=== PATIENT | female | born 1945 | race Caucasian/White ===

== ENCOUNTER 2017-08-25 09:18 | Emergency (ER) | payer MEDICARE, OTHER ==
[~2017-08-25] VITALS: Ht 165.1 cm; Wt 45.0 kg
[~2017-08-25 09:18] MED LIST: ASA LO-DOSE81 MG OR; ESTRACE0.5 MG OR
[2017-08-25 10:03] LABS: HEMATOCRIT 53.9 % (37.0-47.0); HEMOGLOBIN 17.8 g/dl (12.0-16.0); IMMATURE GRANULOCYTES 0.2 % (0.0-1.0); MEAN CELL VOLUME 91.7 fL CALC (80.0-100.0); MEAN CORPUSCULAR HGB 30.3 pG CALC (26.0-32.0); NEUT# 1.57 thou/uL (2.00-7.15); RED BLOOD COUNT 5.88 mill/uL (4.20-5.60); RED CELL DISTRI WIDTH 14.5 % (11.5-15.5)
[2017-08-25 10:19] LABS: PROTHROMBIN TIME 11.4 SECONDS (9.0-12.5)
[2017-08-25 10:20] LABS: ANION GAP 14 (6-22 (CALC)); BUN 15 mg/dL (8-23); BUN/CREATININE RATIO 22 (12-20 (CALC)); CARBON DIOXIDE 33 mmol/l (22-30); CHLORIDE 100 mmol/l (95-108); CREATININE 0.7 mg/dL (0.5-1.0); GFR > 60 ML/MIN (>=60 (CALC)); GFR FOR AFR.AMER. > 60 ML/MIN (>=60 (CALC)); POTASSIUM 4.3 mmol/l (3.5-5.1); SODIUM 142 mmol/l (137-146)
[2017-08-25 10:47] VITALS: BP 196/93
== END 2017-08-25 10:53 | disposition short-term general hospital (02) ==
LOC: ED 09:18
PROVIDERS: Family Medicine
DX: I63.9 Cerebral infarction, unspecified (principal); R29.810 Facial weakness; G81.91 Hemiplegia, unspecified affecting right dominant side; R29.701 NIHSS score 1

== ENCOUNTER 2017-08-31 01:04 | Emergency (ER) | payer MEDICARE, OTHER ==
[~2017-08-31] VITALS: Ht 165.1 cm; Wt 46.2 kg
[2017-08-31] MEDS ORDERED: ASPIRIN81 MG PO (01:22)
[2017-08-31] MEDS ORDERED: ATORVASTATIN CA40 MG PO (01:22)
[2017-08-31] MEDS ORDERED: PLAVIX75 MG PO (01:23)
[2017-08-31] MEDS ORDERED: LISINOPRIL5 MG PO (01:25)
[2017-08-31] MEDS ORDERED: AMOXICILLIN500 MG PO (02:37)
[2017-08-31 02:52] LABS: HEMATOCRIT 47.7 % (37.0-47.0); HEMOGLOBIN 15.9 g/dl (12.0-16.0); IMMATURE GRANULOCYTES 0.2 % (0.0-1.0); MEAN CELL VOLUME 91.4 fL CALC (80.0-100.0); MEAN CORPUSCULAR HGB 30.5 pG CALC (26.0-32.0); MEAN CORPUSCULAR HGB CONC 33.3 g/L CALC (32.0-36.0); NEUT# 2.06 thou/uL (2.00-7.15); RED BLOOD COUNT 5.22 mill/uL (4.20-5.60); RED CELL DISTRI WIDTH 14.2 % (11.5-15.5)
[2017-08-31 03:04] VITALS: BP 153/80
== END 2017-08-31 03:04 | disposition home or self-care (01) ==
LOC: ED 01:04
PROVIDERS: Emergency Medicine
PROC: 0HQGXZZ Repair Left Hand Skin, External Approach (ICD-10-PCS; principal; 2017-08-31)
PROC: 0HQDXZZ Repair Right Lower Arm Skin, External Approach (ICD-10-PCS; 2017-08-31)
DX: S30.0XXA Contusion of lower back and pelvis, initial encounter (principal); S51.811A Laceration without foreign body of right forearm, initial encounter; S61.412A Laceration without foreign body of left hand, initial encounter; W01.190A Fall on same level from slipping, tripping and stumbling with subsequent striking against furniture, initial encounter; Y92.008 Other place in unspecified non-institutional (private) residence as the place of occurrence of the external cause; W19.XXXA Unspecified fall, initial encounter; Z86.73 Personal history of transient ischemic attack (TIA), and cerebral infarction without residual deficits

== ENCOUNTER 2017-11-14 16:36 | Inpatient (IN) | payer MEDICARE, OTHER ==
[2017-11-14] VITALS (9 sets, daily range): BP systolic 131–156; BP diastolic 59–79
[~2017-11-14] VITALS: Ht 165.1 cm; Wt 43.7 kg
[~2017-11-14 16:36] MED LIST changes: +AMOXICILLIN500 MG PO; +ASPIRIN81 MG PO; +ATORVASTATIN CA40 MG PO; +LISINOPRIL5 MG PO; +PLAVIX75 MG PO
[2017-11-14 17:16] LABS: IMMATURE GRANULOCYTES 0.3 % (0.0-5.0); MEAN CELL VOLUME 94.1 fL CALC (80.0-100.0); MEAN CORPUSCULAR HGB 31.1 pG CALC (26.0-32.0); MEAN CORPUSCULAR HGB CONC 33.1 g/L CALC (32.0-36.0); NEUT# 4.45 thou/uL (2.00-7.15); RED BLOOD COUNT 2.54 mill/uL (4.20-5.60); RED CELL DISTRI WIDTH 16.1 % (11.5-15.5); URINE BILIRUBIN - DIPSTICK NEGATIVE (NEGATIVE); URINE BLOOD DIPSTICK TRACE-LYSED (NEGATIVE); URINE COLOR YELLOW; URINE GLUCOSE - DIPSTICK NEGATIVE (NEGATIVE); URINE KETONE NEGATIVE (NEGATIVE); URINE LEUK ESTERASE NEGATIVE (NEGATIVE); URINE NITRITE - DIPSTICK NEGATIVE (Negative); URINE PROTEIN - DIPSTICK 100 mg/dL (NEG-TRACE); URINE SPECIFIC GRAVITY 1.015; URINE UROBILINOGEN - DIPSTICK 0.2 E.U./dL (0.2)
[2017-11-14 17:17] LABS: URINE CLARITY CLEAR
[2017-11-14 17:23] LABS: HEMATOCRIT 23.9 % (37.0-47.0); HEMOGLOBIN 7.9 g/dl (12.0-16.0)
[2017-11-14 17:49] LABS: ALBUMIN 3.2 g/dL (3.2-5.0); ALKALINE PHOSPHATASE 72 u/l (38-126); ANION GAP 11 (6-22 (CALC)); BILIRUBIN, TOTAL 0.3 mg/dL (0.0-1.4); BUN 36 mg/dL (8-23); BUN/CREATININE RATIO 49 (12-20 (CALC)); CARBON DIOXIDE 28 mmol/l (22-30); CHLORIDE 108 mmol/l (95-108); CREATININE 0.7 mg/dL (0.5-1.0); GFR > 60 ML/MIN (>=60 (CALC)); GFR FOR AFR.AMER. > 60 ML/MIN (>=60 (CALC)); POTASSIUM 3.9 mmol/l (3.5-5.1); SGOT/AST 46 u/l (9-36); SGPT/ALT 72 u/l (11-66); SODIUM 143 mmol/l (137-146); TOTAL PROTEIN 5.9 g/dL (6.3-8.2)
[2017-11-14 21:54] LABS: URINE MUCUS FEW hpf (NONE-FEW); URINE SQUAMOUS EPITHELIAL CELL FEW EPI/hpf (0-FEW)
[2017-11-15] VITALS (10 sets, daily range): BP systolic 113–176; BP diastolic 61–75
[2017-11-15 06:21] LABS: MEAN CELL VOLUME 90.9 fL CALC (80.0-100.0); MEAN CORPUSCULAR HGB 30.7 pG CALC (26.0-32.0); MEAN CORPUSCULAR HGB CONC 33.8 g/L CALC (32.0-36.0); RED BLOOD COUNT 3.42 mill/uL (4.20-5.60); RED CELL DISTRI WIDTH 15.2 % (11.5-15.5)
[2017-11-15 06:22] LABS: HEMATOCRIT 31.1 % (37.0-47.0); HEMOGLOBIN 10.5 g/dl (12.0-16.0)
[2017-11-15 06:32] LABS: ANION GAP 9 (6-22 (CALC)); BUN 20 mg/dL (8-23); BUN/CREATININE RATIO 31 (12-20 (CALC)); CARBON DIOXIDE 26 mmol/l (22-30); CHLORIDE 110 mmol/l (95-108); CREATININE 0.6 mg/dL (0.5-1.0); GFR > 60 ML/MIN (>=60 (CALC)); GFR FOR AFR.AMER. > 60 ML/MIN (>=60 (CALC)); POTASSIUM 4.4 mmol/l (3.5-5.1); SODIUM 141 mmol/l (137-146)
== END 2017-11-15 15:02 | DRG 812 ==
LOC: ED 16:36 → ED-I 18:00 → ED 18:19 → ICU 18:20 → MS2 18:20 → ICU 18:21
PROVIDERS: Emergency Medicine; Internal Medicine; ADMIT General Practice; ATTEND General Practice
PROC: 30233N1 Transfusion of Nonautologous Red Blood Cells into Peripheral Vein, Percutaneous Approach (ICD-10-PCS; principal; 2017-11-14)
PROC: 30233N1 Transfusion of Nonautologous Red Blood Cells into Peripheral Vein, Percutaneous Approach (ICD-10-PCS; 2017-11-15)
DX: D62 Acute posthemorrhagic anemia (principal); E46 Unspecified protein-calorie malnutrition; Z68.1 Body mass index [BMI] 19.9 or less, adult; K92.2 Gastrointestinal hemorrhage, unspecified; I10 Essential (primary) hypertension; D45 Polycythemia vera; I69.328 Other speech and language deficits following cerebral infarction; Z85.820 Personal history of malignant melanoma of skin; Z79.02 Long term (current) use of antithrombotics/antiplatelets; Z79.82 Long term (current) use of aspirin
CPT/HCPCS: P9016; S0164

== ENCOUNTER 2018-12-03 17:08 | Emergency (ER) | payer MEDICARE, OTHER ==
[~2018-12-03] VITALS: Ht 165.1 cm; Wt 45.5 kg
[2018-12-03] MEDS ORDERED: PROTONIX40 M2 PO (17:20)
[2018-12-03] MEDS ORDERED: EQL IRON SUPPL325 MG PO (17:20)
[2018-12-03] MEDS ORDERED: HYDROCO/APAP1 TA9 PO (18:41)
[2018-12-03 19:18] VITALS: BP 157/83
== END 2018-12-03 19:18 | disposition home or self-care (01) ==
LOC: ED 17:08
PROC: 2W39X1Z Immobilization of Left Upper Extremity using Splint (ICD-10-PCS; principal; 2018-12-03)
DX: S52.022A Displaced fracture of olecranon process without intraarticular extension of left ulna, initial encounter for closed fracture (principal); S00.83XA Contusion of other part of head, initial encounter; M25.422 Effusion, left elbow; S51.811A Laceration without foreign body of right forearm, initial encounter; S61.412A Laceration without foreign body of left hand, initial encounter; S51.812A Laceration without foreign body of left forearm, initial encounter; S51.012A Laceration without foreign body of left elbow, initial encounter; S80.211A Abrasion, right knee, initial encounter; Y93.01 Activity, walking, marching and hiking; W01.0XXA Fall on same level from slipping, tripping and stumbling without subsequent striking against object, initial encounter; Y92.008 Other place in unspecified non-institutional (private) residence as the place of occurrence of the external cause

== ENCOUNTER 2020-02-11 13:04 | Emergency (ER) | payer MEDICARE, OTHER ==
[~2020-02-11] VITALS: Ht 165.1 cm; Wt 60.0 kg
[~2020-02-11 13:04] MED LIST changes: +EQL IRON SUPPL325 MG PO; +HYDROCO/APAP1 TA9 PO; +PROTONIX40 M2 PO
[2020-02-11 15:35] VITALS: BP 150/65
== END 2020-02-11 15:37 | disposition home or self-care (01) ==
LOC: ED 13:04
DX: S20.211A Contusion of right front wall of thorax, initial encounter (principal); S50.311A Abrasion of right elbow, initial encounter; I10 Essential (primary) hypertension; K21.9 Gastro-esophageal reflux disease without esophagitis; W18.2XXA Fall in (into) shower or empty bathtub, initial encounter; Y92.002 Bathroom of unspecified non-institutional (private) residence as the place of occurrence of the external cause; Z86.73 Personal history of transient ischemic attack (TIA), and cerebral infarction without residual deficits

== ENCOUNTER 2021-01-15 18:45 | Inpatient (IN) | payer MEDICARE, OTHER ==
[~2021-01-15] VITALS: Ht 165.1 cm; Wt 46.0 kg
--- NOTE | 2021-01-15 19:30 | NUR ---
AMB TO RM 15
--- NOTE | 2021-01-15 19:40 | NUR ---
A/O F WITH LOWER ABD TENDERNESS TO PALP & DIARRHEA mm are pink and moist
--- NOTE | 2021-01-15 20:10 | NUR ---
LABS DRAWN,SALINE LOCK LAC PT IS IN NAD.WARM BLANKET PROVIDED
[2021-01-15 20:33] LABS: HEMATOCRIT 39.8 % (37.0-47.0); HEMOGLOBIN 12.8 g/dl (12.0-16.0); MEAN CELL VOLUME 96.1 fL CALC (80.0-100.0); MEAN CORPUSCULAR HGB 30.9 pG CALC (26.0-32.0); MEAN CORPUSCULAR HGB CONC 32.2 g/dL CAL (32.0-36.0); NEUT# 15.65 thou/uL (2.00-7.15); RED BLOOD COUNT 4.14 mill/uL (4.20-5.60); RED CELL DISTRI WIDTH 14.8 % (11.5-15.5); URINE BILIRUBIN - DIPSTICK NEGATIVE (NEGATIVE); URINE BLOOD DIPSTICK NEGATIVE (NEGATIVE); URINE COLOR YELLOW; URINE GLUCOSE - DIPSTICK NEGATIVE (NEGATIVE); URINE KETONE TRACE mg/dL (NEGATIVE); URINE LEUK ESTERASE TRACE (NEGATIVE); URINE PROTEIN - DIPSTICK TRACE mg/dL (NEG-TRACE); URINE SPECIFIC GRAVITY 1.025; URINE UROBILINOGEN - DIPSTICK 0.2 E.U./dL (0.2)
[2021-01-15 20:34] LABS: URINE NITRITE - DIPSTICK NEGATIVE (Negative)
[2021-01-15 20:44] LABS: ALBUMIN 3.6 g/dL (3.2-5.0); ALKALINE PHOSPHATASE 77 u/l (38-126); BUN 54 mg/dL (8-23); BUN/CREATININE RATIO 35 (12-20 (CALC)); CHLORIDE 94 mmol/l (95-108); CREATININE 1.6 mg/dL (0.5-1.0); GFR 31 ML/MIN (>=60 (CALC)); GFR FOR AFR.AMER. 38 ML/MIN (>=60 (CALC)); LIPASE 83 u/l (23-300); POTASSIUM 3.7 mmol/l (3.5-5.1); SGOT/AST 33 u/l (9-36); SODIUM 126 mmol/l (137-146); TOTAL PROTEIN 6.8 g/dL (6.3-8.2)
[2021-01-15 20:49] LABS: ACT PARTIAL THROMBO TIME 35.8 SECONDS (20.0-32.5); ANION GAP 15 (6-22 (CALC)); CARBON DIOXIDE 21 mmol/l (22-30); PROTHROMBIN TIME 10.5 SECONDS (9.0-12.5)
--- NOTE | 2021-01-15 21:30 | NUR ---
PT UP TO RR TO VOID AND WAS INCONTINENT OF WATERY DK BROWN STOOL PERICARE ON RETURN TO BED NO S/S OF WEAKNESS.
--- NOTE | 2021-01-15 21:55 | NUR ---
A/O X3 NO C/O PAIN ST WITH OCC UNIFOCAL PVCS.
[2021-01-15] MEDS ORDERED: ELAVIL25 M1 PO (22:11)
[2021-01-15] MEDS ORDERED: TRAMADOL HYDROC50 M1 (22:12)
--- NOTE | 2021-01-15 22:25 | NUR ---
PT IS W/P/D NO C/O PAIN NO DIARRHEA.PT HAS A SMALL SUPERFICIAL SKIN TEAR R FA FROM FALL AT HOME APPEARS CLEAN DSD APPLIED TO WOUND.
--- NOTE | 2021-01-15 23:30 | NUR ---
PT UP TO BSC TO VOID. PHONE REPORT TO NURSE FERREIRA ON MS.THEN PT TRANSPORTED TO [facility] RM 278 VIA TELE AND WC IN STABLE CONDITION
[2021-01-15 23:40] VITALS: BP 137/54
[2021-01-16] VITALS (11 sets, daily range): BP systolic 114–128; BP diastolic 50–67
--- NOTE | 2021-01-16 | NUR ---
RESTING QUIETLY. PATIENT CONTINUES TO HAVE DIARRHEA. STOOL SAMPLE OBTAINED. NO ACUTE DISTRESS OBSERVED.
--- NOTE | 2021-01-16 04:30 | NUR ---
PATIENT UP TO BSC FOR DIARRHEA. NEW GOWN AND SHEETS OBTAINED.
[2021-01-16 05:27] LABS: HEMATOCRIT 37.8 % (37.0-47.0); HEMOGLOBIN 12.2 g/dl (12.0-16.0); IMMATURE GRANULOCYTES 0.5 % (0.0-5.0); MEAN CELL VOLUME 94.7 fL CALC (80.0-100.0); MEAN CORPUSCULAR HGB 30.6 pG CALC (26.0-32.0); MEAN CORPUSCULAR HGB CONC 32.3 g/dL CAL (32.0-36.0); NEUT# 14.13 thou/uL (2.00-7.15); RED BLOOD COUNT 3.99 mill/uL (4.20-5.60); RED CELL DISTRI WIDTH 14.8 % (11.5-15.5)
[2021-01-16 05:39] LABS: BILIRUBIN, TOTAL 0.8 mg/dL (0.0-1.4); CREATININE 1.1 mg/dL (0.5-1.0); POTASSIUM 3.2 mmol/l (3.5-5.1)
--- NOTE | 2021-01-16 07:15 | NUR ---
PATEINT ALERT AND ORIENTED AT THIS TIME. PATIENT BEING PREPARED FOR OR AT THIS TIME FOR LAP APPENDECTOMY. PATIENT ON TELE AT THIS TIME AND BEING MONITORED IN ED. LUNG GODINEZ ARE CLEAR AND PATIENT DENIENS ANY PAIN AT THIS TIME. SIDERAILS ARE UP X 2 CALL LIGHT WIHTIN REACH.
--- NOTE | 2021-01-16 07:45 | NUR ---
SURGERY NURSE UP TO TAKE PATIENT TO OR AT THIS TIME.
--- NOTE | 2021-01-16 10:11 | NUR ---
PATIENT OFF TELE MONITOR DUE TO BEING IN SURGERY AT THIS TIME.
--- NOTE | 2021-01-16 10:45 | NUR ---
PATIENT ARRIVED BACK TO FLOOR FROM OR AT THIS TIME. PATIENT ALERT AND ORIENTED AND STATES HER PAIN WAS MAYBE "1 OR 2" ON THE PAIN SCALE OF 0-10. PATIENT HAS 3 LAP SITES ONE UMBILICUS AND TWO LOWER DERMABOND CLOSED AND ONE BELEN DRAIN ON LEFT SIDE. DRESSING DRY AND INTACT. VITAL SIGNS TAKEN SEE INTERVENTIONS. 150 MLS DRAINED FROM BELEN DRAIN AT THIS TIME. 02 ON AT [address] SIDERAILS ARE UP X 2 CALL LIGHT WITHIN REACH.
--- NOTE | 2021-01-16 11:46 | NUR ---
PATIENT RESTING IN BED AT THIS TIME. SIDERAILS ARE UP CALL LIGHT WIHTIN REACH. PATIENT STATES HER PAIN IS MINIMAL AT THAT TIME. SCHEDULE TORADOL GIVEN AT THIS TIME SEE MAR. SIDERAILS ARE UP CALL LIGHT WITHIN REACH. TELE MONITOR ON AND BEING MONITORED BY ED. DRESSING DRY AND INTACT AT THIS TIME.
--- NOTE | 2021-01-16 15:08 | NUR ---
PATIENT MEDICATED AT THIS TIME FOR PAIN LEVEL OF 4 OUT OF THE PAIN SCALE OF 0-10. OXYCODONE-ACETAMINOPHEN 5MG/325 GIVEN PO AT THIS TIME. PATIENT SIDERAILS ARE UP CALL LIGHT IS WITHIN REACH AT THIS TIME. DRESSINGS REMAIN DRY AND INTACT AT THIS TIME.
--- NOTE | 2021-01-16 16:24 | NUR ---
PATIENT LAYING IN BED AT THIS TIME STATES PAIN LEVEL IS A 1 AT THIS TIME. SIDERAILS ARE UP X 2 DRESSINGS REMAIN DRY AND INTACT AT THIS TIME. CALL LIGHT IS WITHIN REACH.
--- NOTE | 2021-01-16 19:30 | NUR ---
PATIENT ALERT AND ORIENTED. ABLE TO MAKE NEEDS KNOWN. ASSESSMENT COMPLETE. DRESSINGS X3 TO ABDOMEN INTACT. BELEN DRAIN ON LEFT ABDOMEN AREA WITH 50CC OF CLOUDY RED/PINK OUTPUT. ENCOURAGED PATIENT TO USE CALL LIGHT FOR ASSISTANCE.
[2021-01-17] VITALS: BP 116/54
--- NOTE | 2021-01-17 02:30 | NUR ---
ENTERED ROOM AND OBSERVED PATIENTS DRESSING TO BELEN DRAIN SATURATED AND FALLING OFF. NEW DRY CLEAN DRESSING APPLIED. PATIENT TOLERATED WELL.
[2021-01-17 04:00] VITALS: BP 119/73
--- NOTE | 2021-01-17 04:37 | NUR ---
PATIENT RESTING IN BED QUIETLY. NO COMPLAINTS VOICED AT THIS TIME. CALL LIGHT AND BELONGINGS REMAIN IN REACH.
[2021-01-17 05:29] LABS: HEMATOCRIT 39.5 % (37.0-47.0); HEMOGLOBIN 12.6 g/dl (12.0-16.0); IMMATURE GRANULOCYTES 0.5 % (0.0-5.0); MEAN CELL VOLUME 96.3 fL CALC (80.0-100.0); MEAN CORPUSCULAR HGB 30.7 pG CALC (26.0-32.0); MEAN CORPUSCULAR HGB CONC 31.9 g/dL CAL (32.0-36.0); NEUT# 9.66 thou/uL (2.00-7.15); RED BLOOD COUNT 4.1 mill/uL (4.20-5.60)
[2021-01-17 05:54] LABS: CREATININE 1.1 mg/dL (0.5-1.0); POTASSIUM 3.6 mmol/l (3.5-5.1)
--- NOTE | 2021-01-17 07:46 | NUR ---
PICTURE TAKEN OF AREA TO LEFT ELBOW. SEE CHART.
[2021-01-17 09:30] VITALS: BP 136/58
--- NOTE | 2021-01-17 09:30 | NUR ---
BEDSIDE REPORT RECEIVED. ASSESSMENT PERFORMED. DRESSINGS TO ABD BILAT ELBOWS CLEAN DRY AND INTACT. ABD DISTENDED FIRM, TENDER. NO FURTHER COMPLAINTS. WILL CONTINUE TO MONITOR.
[2021-01-17 12:00] VITALS: BP 124/56
[2021-01-17 16:30] VITALS: BP 129/60
--- NOTE | 2021-01-17 18:41 | NUR ---
INCREASED CONFUSION. CT BRAIN ORDERED. NARCOTICS ON HOLD. AMONIA CMP ORDERED PER D MOSES
--- NOTE | 2021-01-17 19:10 | NUR ---
REPORT RECEIVED FROM Patience BARBOZA
[2021-01-17 19:16] LABS: URINE BILIRUBIN - DIPSTICK NEGATIVE (NEGATIVE); URINE BLOOD DIPSTICK NEGATIVE (NEGATIVE); URINE CLARITY CLEAR; URINE COLOR YELLOW; URINE GLUCOSE - DIPSTICK NEGATIVE (NEGATIVE); URINE KETONE NEGATIVE (NEGATIVE); URINE LEUK ESTERASE NEGATIVE (Negative); URINE NITRITE - DIPSTICK NEGATIVE (Negative); URINE PROTEIN - DIPSTICK 30 mg/dL (NEG-TRACE); URINE UROBILINOGEN - DIPSTICK 0.2 E.U./dL (0.2)
[2021-01-17 19:30] VITALS: BP 120/56
[2021-01-17 20:42] LABS: ALBUMIN 3.3 g/dL (3.2-5.0); ALKALINE PHOSPHATASE 76 u/l (38-126); ANION GAP 12 (6-22 (CALC)); BILIRUBIN, TOTAL 0.8 mg/dL (0.0-1.4); BUN 22 mg/dL (8-23); BUN/CREATININE RATIO 26 (12-20 (CALC)); CARBON DIOXIDE 22 mmol/l (22-30); CHLORIDE 97 mmol/l (95-108); CREATININE 0.8 mg/dL (0.5-1.0); GFR > 60 ML/MIN (>=60 (CALC)); GFR FOR AFR.AMER. > 60 ML/MIN (>=60 (CALC)); POTASSIUM 3.5 mmol/l (3.5-5.1); SGOT/AST 41 u/l (9-36); SODIUM 128 mmol/l (137-146); TOTAL PROTEIN 6.9 g/dL (6.3-8.2)
--- NOTE | 2021-01-17 21:30 | NUR ---
PATIENT ALERT AND ORIENTED X3, RESTING IN SEMI FOLWERS. CLEAR LUNG SOUNDS, LAST TELEMETRY READING ST WITH PVC BIGEMINI RATE 120 ACCORDING TO ER MONITORING. ACTIVE BOWEL, LAST REPORTED MOVEMENT 01/16/21. PATIENT HAS DRESSING TO ABDOMEN, WITH BELEN DRAINS X1, SOILED WITH SEROUS DRAINAGE, CHANGED BY WIRTTER, PATIENT TOLERATED WELL. NO COMPLAINTS OF PAIN. PATIENT HAS A 20 IN LEFT AC. FLUSHED AND PATENT. ANTIBIOTIC FOUND DRAINING TO FLOOR. PATIENT UP TO THE RESTROOM, WILL RECONNECT FLUIDS AFTER. CARE PLAN REVIEWED WITH PATIENT, CALL LIGHT AND BEDSIDE TABLE WITHIN REACH.
[2021-01-18] VITALS: BP 125/66
--- NOTE | 2021-01-18 00:30 | NUR ---
PATIENT OUT IN THE HALLWAY, REORIENTERD TO ROOM. PATIENTS IV RECCONECTED DUE TO LOW BATEERY. PATIENT ASSITED BACK IN BED, CALL LIGHT AND BEDSIDE TABLE WITHIN REACH.
[2021-01-18 04:00] VITALS: BP 135/86
[2021-01-18 04:39] LABS: HEMATOCRIT 37.2 % (37.0-47.0); MEAN CELL VOLUME 95.6 fL CALC (80.0-100.0); MEAN CORPUSCULAR HGB 30.8 pG CALC (26.0-32.0); MEAN CORPUSCULAR HGB CONC 32.3 g/dL CAL (32.0-36.0); RED BLOOD COUNT 3.89 mill/uL (4.20-5.60); RED CELL DISTRI WIDTH 14.7 % (11.5-15.5)
--- NOTE | 2021-01-18 04:57 | NUR ---
PATIENT RESTNG QUIETLY, DENIES ANY NEEDS AT THIS TIME. CALL LIGHT AND BEDSIDE TABLE WITHIN REACH
[2021-01-18 07:25] VITALS: BP 148/84
--- NOTE | 2021-01-18 07:25 | NUR ---
BEDSIDE REPORT RECEIVED AT CHANGE OF SHIFT. PT LYING IN BED AWAKE. ASSESSMENT PERFORMED. PT HAD SOME CONFUSION YESTERDAY SEEMS TO BE ALLEVIATED. DRESSING TO BELEN DRAIN CHANGED, CABLE MOCK UP ASSEMBLER NURSE REPORTED TO HAVE CHANGED ON HER SHIFT WELL. NOTED TO HAVE LARGE AMOUNT OF SEROUS FLUID. DRAIN IS SUTURED TO SKIN AND HAS 10 ML SEROUSANGUINOUS FLUID AT THIS TIME. NO REDNESS SWELLING OR ODOR.NO FURTHER COMPLAINTS, WILL CONTINUE TO MONITOR. Esperanza LOPES NOTIFIED OF SOAKED DRESSING. .
[2021-01-18 10:40] VITALS: BP 156/76
--- NOTE | 2021-01-18 12:12 | NUR ---
2 CLOSED BY STURE AREAS TO ABDOMEN. SUPERIOR HAS 4 BHAVESH INFERIOR HAS 2 BHAVESH. BOTH CLEAN DRY AND INTACT, LEFT OPEN TO AIR. BELEN DRAIN REMOVED CLEANSED PATRICK AREA COVERED WITH GAUZE AND TEGADERM. MODERATE AMOUT OF DRAINAGE TO REMOVED DRESSING. NO DISTRESS NOTED TOLERATED PROCEDURE WELL WILL CONTINUE TO MONITOR.
--- NOTE | 2021-01-18 13:55 | NUR ---
DRESSING CHANGE TO PREVIOUS BELEN DRAIN SITE. SOAKED WITH SEROUSANGUINOUS FLUID.
[2021-01-18 15:09] VITALS: BP 152/56
--- NOTE | 2021-01-18 18:26 | NUR ---
NOTIFIED Esperanza LOPES REGARDING ELEVATED BP AND LOW GRADE FEVER, NO FURTHER ORDERS AT THIS TIME.
[2021-01-18 19:00] VITALS: BP 170/71; BP 180/75
[2021-01-19] VITALS (8 sets, daily range): BP systolic 130–182; BP diastolic 63–93
--- NOTE | 2021-01-19 00:03 | NUR ---
CALL RECEIVED FROM ER, PRIOR TO CALL PATIENT LEADS AND TELE REPLACED X 3, TELEMETRY BOX REPLACED. ER CALLED REGARDING HR OF 40, STAT EKG ORDERED. RESP AT BEDSIDE.
--- NOTE | 2021-01-19 00:15 | NUR ---
CALL FROM ER RECEIVED, PATIENT HR AT 18-30, EKG RHYTM ST WITH PVS AT 115
[2021-01-19 04:49] LABS: HEMATOCRIT 37.6 % (37.0-47.0); HEMOGLOBIN 12.4 g/dl (12.0-16.0); MEAN CELL VOLUME 93.1 fL CALC (80.0-100.0); MEAN CORPUSCULAR HGB 30.7 pG CALC (26.0-32.0); RED BLOOD COUNT 4.04 mill/uL (4.20-5.60); RED CELL DISTRI WIDTH 14.4 % (11.5-15.5)
[2021-01-19 05:20] LABS: ANION GAP 12 (6-22 (CALC)); BUN 14 mg/dL (8-23); BUN/CREATININE RATIO 22 (12-20 (CALC)); CARBON DIOXIDE 20 mmol/l (22-30); CHLORIDE 103 mmol/l (95-108); CREATININE 0.7 mg/dL (0.5-1.0); GFR > 60 ML/MIN (>=60 (CALC)); GFR FOR AFR.AMER. > 60 ML/MIN (>=60 (CALC)); MAGNESIUM 1.9 mg/dL (1.6-2.3); POTASSIUM 3.7 mmol/l (3.5-5.1); SODIUM 132 mmol/l (137-146)
--- NOTE | 2021-01-19 07:10 | NUR ---
REPORT RECEIVED FROM IRENE GONZALEZ
--- NOTE | 2021-01-19 07:40 | NUR ---
PT RESTING AT BEDSIDE,A&O X3;VS OBTAINED AND ASSESSMENT COMPLETED;PT POD #3 LAP APPY;PT DENIES ANY CURRENT PAIN OR DISCOMFORTS,PAIN SCALE AND REPORTING EDUCATED;RESPIRATIONS EVEN AND UNLABORED ON RA,CLEAR LUNG SOUNDS;ABDOMEN DISTENED/SOFT ON PALPATION AND ACTIVE IN ALL 4 QUADRANTS;ABDOMINAL DRY DRESSING NOTED WITH SLIGHT SHADOWING NOTED;WEAK PEDAL PULSES;MULTIPLE SKIN TEARS NOTED THROUGHOUT BODY WITH STERI STRIPS IN PLACE;TELE MONITORING IN PLACE;#20G TO LAC INFUSING NS WITH 20MEQ @ 100ML/HR,SITE APPEARS HEALTHY;PT DENIES ANY ADDITIONAL NEEDS AND IS ENCOURAGED TO CALL FOR ASSISTANCE IF NEEDED;FALL PRECAUTIONS IN PLACE WITH BED IN THE LOWEST POSITION AND CALL LIGHT IN REACH;WILL CONTINUE TO MONITOR
--- NOTE | 2021-01-19 09:30 | NUR ---
PT RESTING IN SEMI FOWLERS POSITION;ABDOMINAL DRESSING CHANGED AT THIS TIME AND PT TOLERATED WELL.1ST DOSE OF GASTROGRAPHIN ADMINISTERED AND PT TOLERATED WELL;PT DENIES ANY ADDITIONAL NEEDS AND IS ENCOURAGED TO CALL FOR ASSISTANCE IF NEEDED;CALL LIGHT IN REACH;WILL CONTINUE TO MONITOR
--- NOTE | 2021-01-19 10:00 | NUR ---
SECOND DOSE OF GASTROGRAPHIN ADMINISTERED AT THIS TIME,PT TOLERATED WELL;#20G TO LAC REMOVED DUE TO LEAKING WITH CATHETER INTACT;NEW #22G STARTED TO LFA ON 1ST ATTEMPT BY THIS WRITTER;PT DENIES ANY ADDITIONAL NEEDS;CALL LIGHT IN REACH;WILL CONTINUE TO MONITOR
--- NOTE | 2021-01-19 10:15 | NUR ---
AND ROXANA ANPR AT BEDSIDE
--- NOTE | 2021-01-19 10:30 | NUR ---
LAST DOSE OF GASTROGRAPHIN ADMINISTERED AND CATSCAN TO BE NOTIFIED. PT MEDICATED WITH PRN TYLENOL 650MG PO FOR LOWER BACK PAIN RATING 5/10 ON THE PAIN SCALE;WILL CONTINUE TO MONITOR FOR EFFECTIVENESS
--- NOTE | 2021-01-19 11:21 | NUR ---
PT TRANSPORTED TO [facility] IN STABLE CONDITION VIA WC ACCOMPANIED BY NIKKI ANDERSON.
--- NOTE | 2021-01-19 11:39 | NUR ---
PT TRANSPORTED BACK TO MED/SURG ROOM 278 IN STABLE CONDITION VIA WC ACCOMPANIED BY NIKKI ANDERSON
--- NOTE | 2021-01-19 11:45 | NUR ---
PT MEDICATED WITH PRN TORADOL 15MG IVP FOR LOWER BACK PAIN RATING 4/10 ON THE PAIN SCALE,WILL CONTINUE TO MONITOR FOR EFFECTIVENESS
--- NOTE | 2021-01-19 14:28 | NUR ---
PT BLOOD PRESSURE ELEVATED 182/93 HR 95. PT TO BE MEDICATED WITH PRN APRESOLINE 10MG SLOW IVP BY IRENE MONTGOMERY.WILL CONTINUE TO MONITOR FOR EFFECTIVENESS
--- NOTE | 2021-01-19 15:30 | NUR ---
PT RESTING IN SEMI FOWLERS POSITION;RESPIRATIONS EVEN AND UNLABORED ON RA;PT DENIES ANY CURRENT NEEDS;TELE MONITORING IN PLACE;IV SITE PATENT INFUSING WITH EASE;BP RE-CHECK 130/63 HR 105;PT DENIES ANY ADDITIONAL NEEDS AND IS ENCOURAGED TO CALL FOR ASSISTANCE IF NEEDED;CALL LIGHT IN REACH;WILL CONTINUE TO MONITOR
--- NOTE | 2021-01-19 17:00 | NUR ---
PT AMBULATING THE HALLWAYS WITH A STEADY GAIT. PRUNE JUICE ALSO PROVIDED TO ASSIST WITH BOWEL CARE.WILL CONTINUE TO MONITOR
--- NOTE | 2021-01-19 17:14 | NUR ---
PT REPORTING ABDOMINAL PAIN RATING 10/10 ON THE PAIN SCALE AND REQUESTING PAIN MEDICATION. INCREASED ABDOMINAL DISTENTION ALSO NOTED. NOTIFIED AND PER MD HE WILL PLACE NEW ORDER;WILL CONTINUE TO MONITOR
--- NOTE | 2021-01-19 17:55 | NUR ---
PT MEDICATED WITH PRN TORADOL 15MG IVP FOR ABDOMINAL PAIN RATING 10/10 ON THE PAIN SCALE,WILL CONTINUE TO MONITOR FOR EFFECTIVENESS
--- NOTE | 2021-01-19 19:00 | NUR ---
PT REPORTS ABDOMINAL PAIN NOT TOLERABLE AFTER TORADOL ADMINISTRATION. CALL PLACED TO AT THIS TIME.PER MD NEW ORDERS WILL BE PLACED FOR PRN MORPHINE.REPORT GIVEN TO NIGHTSHIFT NURSE IRENE MITTAL.AWAITING NEW ORDERS.
--- NOTE | 2021-01-19 20:00 | NUR ---
PATIENT IS AWAKE, ALERT AND ORIENTED, AMBULATING IN ROOM. C/O ABDOMINAL PAIN 01/12. NEW ORDERS RECEIVED FROM DR. MCKEON FOR MORPHINE AND LR. AWAITING PHARMACY TO INPUT ORDERS. RESPIRATIONS EVEN AND UNLABORED. ON TELEMETRY. ABD DISTENDED. BS HYPOACTIVE IN LOWER QUADRANTS. PATIENT REPORTS NOT PASSING GAS SINCE SURGERY. NO BM SINCE 01/16. PATIENT GIVEN 8 OZ WARM PRUNE JUICE TO AID IN BOWEL EVACUATION WITHOUT SUCCESS SO FAR. IVF INFUSING. VAD #22 LFA PATIENT WITH DRESSING CDI. DRESSING TO ABD CDI. ASSESSMENT COMPLETED AND CHARTED.
[2021-01-20] VITALS (8 sets, daily range): BP systolic 140–189; BP diastolic 74–95
--- NOTE | 2021-01-20 00:30 | NUR ---
PATIENT PAIN HAS IMPROVED FROM A 10 TO A 4. RESPIRATIONS EVEN AND UNLABORED. NO COMPLAINTS AT THIS TIME.
--- NOTE | 2021-01-20 04:37 | NUR ---
RESTING QUIETLY. NO COMPLAINTS.
[2021-01-20 05:26] LABS: HEMATOCRIT 38.6 % (37.0-47.0); HEMOGLOBIN 12.6 g/dl (12.0-16.0); IMMATURE GRANULOCYTES 1.9 % (0.0-5.0); MEAN CELL VOLUME 92.8 fL CALC (80.0-100.0); MEAN CORPUSCULAR HGB 30.3 pG CALC (26.0-32.0); MEAN CORPUSCULAR HGB CONC 32.6 g/dL CAL (32.0-36.0); NEUT# 5.67 thou/uL (2.00-7.15); RED BLOOD COUNT 4.16 mill/uL (4.20-5.60); RED CELL DISTRI WIDTH 14.7 % (11.5-15.5)
[2021-01-20 05:46] LABS: ALBUMIN 2.9 g/dL (3.2-5.0); ALKALINE PHOSPHATASE 72 u/l (38-126); BILIRUBIN, TOTAL 0.5 mg/dL (0.0-1.4); BUN 13 mg/dL (8-23); BUN/CREATININE RATIO 19 (12-20 (CALC)); CARBON DIOXIDE 21 mmol/l (22-30); CHLORIDE 104 mmol/l (95-108); CREATININE 0.7 mg/dL (0.5-1.0); GFR > 60 ML/MIN (>=60 (CALC)); GFR FOR AFR.AMER. > 60 ML/MIN (>=60 (CALC)); SGOT/AST 42 u/l (9-36); SODIUM 133 mmol/l (137-146); TOTAL PROTEIN 5.9 g/dL (6.3-8.2)
[2021-01-20 05:56] LABS: ANION GAP 13 (6-22 (CALC)); POTASSIUM 4.5 mmol/l (3.5-5.1)
--- NOTE | 2021-01-20 07:30 | NUR ---
PATIENT LAYING IN BED AT THIS TIME ALERT AND ORIENTED. PATIENT STATES "I CAN'T POOP" AND I STILL HAVE PAIN". PATIENT WAS PREVIOUSLY MEDICATED AT 0630 AND PATIENT STATES HER PAIN IS A "5" OUT OF THE SCALE OF 0-10 PATIENTS ABDOMEN IS FIRM AND DISTENDED AT THIS TIME AND NO BOWEL SOUNDS ARE PRESENT IN ALL FOUR QUARDANTS. PATIENTS LUNG GODINEZ ARE CLEAR AND ABDOMINAL DRESSINGS ARE DRY AND INTACT AT THIS TIME. PATIENT HAS TELE MONITOR IN PLACE AND BEING MONITORED BY ED AT THIS TIME. WILL CONTINUE TO MONITOR.
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
--- NOTE | 2021-01-20 10:30 | NUR ---
DR. WOLFF IN TO SEE PATIENT AT THIS TIME. PATIENT TO REMAIN NPO EXCEPT ICE CHIPS. WILL CONTINUE TO MONITOR.
--- NOTE | 2021-01-20 11:39 | NUR ---
PATIENT UP WALKING IN HALLWAY AT THIS TIME. PATIENT REMAINS NPO EXCEPT FOR ICE-CHIPS ONLY. ABDOMINAL BOWEL SOUNDS ARE NOTED HYPOACTIVE IN LOWER QUADRANTS AT THIS TIME. [facility] AND BEING MONITORED BY ED.
--- NOTE | 2021-01-20 14:22 | NUR ---
ABDOMINAL DRESSINGS CHANGED AT THIS TIME. ALL STABLES ARE INTACT AND NO ICISIONAL SITE INFECTION NOTED. BELEN DRAIN HOLE SITE IS FREE FROM SITE INFECTIONS AND SCANT AMOUNT OF DRAINAGE NOTED AT THIS TIME. PATIENT TOLERATED PROCEEDURE WITHOUT ISSUE.
--- NOTE | 2021-01-20 16:15 | NUR ---
PATIENT UP AT BEDSIDE NEW GOWN PLACED AT THIS TIME. PATIENT STATES HER PAIN LEVEL IS ONLY A 2 AT THIS TIME PATIENT STATES SHE IS NOT PASSING GAS BUT "DOES FEEL BETTER". BOWEL SOUNDS REMAIN HYPO ACTIVE IN LOWER QUADRANT AND NO NOTABLE BOWEL SOUNDS IN UPPPER GODINEZ. PATIENT WILL REMAIN TO BE MONITORED AT THIS TIME. TELE MONITOR ON AND BEING MONITORED BY ED.
--- NOTE | 2021-01-20 19:14 | NUR ---
PATIENT RESTING IN BED. ALERT AND ORIENTED. ABLE TO MAKE NEEDS KNOWN. ASSESSMENT COMPLETE AT THIS TIME. BELLY REMAINS DISTENDED AND FIRM. HYPERACTIVE BOWEL SOUNDS TO LEFT SIDE. PATIENT PASSING LARGE AMOUNTS OF GAS WITH RELIEF. CALL LIGHT AND BELONGINGS REMAIN IN REACH.
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
[2021-01-21] VITALS (13 sets, daily range): BP systolic 137–170; BP diastolic 60–82
--- NOTE | 2021-01-21 03:00 | NUR ---
PATIENT OBSERVED STANDING ON SIDE OF BED AT THE BEDSIDE COMMODE WITH SMALL AMOUNT OF STOOL ON THE FLOOR AND HER LEGS. AGRICULTURE CONSULTANT AND NURSE ENCOURAGED PATIENT TO CALL AND ASK FOR ASSISTANCE FOR SAFETY PURPOSES. PATIENT WAS REDIRECTED SEVERAL TIMES WITH NO EFFECTIVE OUTCOME. BED ALARM PUT IN PLACE FOR SAFETY PURPOSES AND ALSO TO REMIND PATIENT TO USE CALL LIGHT FOR HELP. CALL LIGHT AND BELONGINGS REMAIN IN REACH.
--- NOTE | 2021-01-21 04:45 | NUR ---
CALL OUT TO MATERIAL MIXER ON PATIENTS HEART RHYTHM CHANGE AFIB RVR. VITAL SIGNS DONE. STAT EKG DONE. PATIENT APPEARS ASYMPTOMATIC. NO COMPLAINTS OF PAIN, DISCOMFORT, HEAVINESS, OR SHORTNESS OF BREATH. ORDER TO TRANSFER TO ICU.
--- NOTE | 2021-01-21 05:10 | NUR ---
SBAR RECEIVED VIA PHONE FROM IRENE RIVERA
--- NOTE | 2021-01-21 05:20 | NUR ---
RECEIVED PATIENT TO ICU BED 5 VIA STRETCHER. PATIENT AWAKE ALERT AND ORIENTED X3. HEART RATE 130'S, RHYTHM AFIB. BP 102/60. LUNGS CLEAR BILATERALLY, RESPIRATIONS EVEN AND UNLABORED. HEART SOUNDS IRREGULAR. ABDOMEN DISTENDED, BOWEL SOUNDS HYPOACTIVE. SURGICAL SITE DRESSING TO ABDOMEN CLEAN DRY AND INTACT. PULSES PRESENT, NO EDEMA NOTED. NO DISTRESS NOTED AT THIS TIME. PATIENT DENIES PAIN. ORIENTED TO ROOM, INSTRUCTED ON USE OF CALL LIGHT. BED IN LOW POSITION, LOCKED. BED ALARM ACTIVATED. CALL LIGHT WITHIN REACH INSTRUCTED TO CALL FOR ASSISTANCE.
--- NOTE | 2021-01-21 05:45 | NUR ---
0540 B 102/60 HR 146 CARDIZEM 5MG IV GIVEN REPEAT BP 81/42 HR126.
[2021-01-21 05:50] LABS: ANION GAP 15 (6-22 (CALC)); BUN 15 mg/dL (8-23); BUN/CREATININE RATIO 24 (12-20 (CALC)); CARBON DIOXIDE 21 mmol/l (22-30); CHLORIDE 102 mmol/l (95-108); CREATININE 0.6 mg/dL (0.5-1.0); GFR > 60 ML/MIN (>=60 (CALC)); GFR FOR AFR.AMER. > 60 ML/MIN (>=60 (CALC)); POTASSIUM 4.2 mmol/l (3.5-5.1); SODIUM 134 mmol/l (137-146)
--- NOTE | 2021-01-21 05:50 | NUR ---
1550 BP 140/92 CARDIZEM GTT STARTED AT 5MG/HR RECHECK BP 108/79
--- NOTE | 2021-01-21 06:00 | NUR ---
SPOKE WITH DAUGHTER ON PATIENTS STATUS. DAUGHTER APPEARS TO UNDERSTAND PLAN OF CARE FOR PATIENT.
--- NOTE | 2021-01-21 06:20 | NUR ---
CARDIZEM INCREASED TO 10MG/HR BP 145/67
--- NOTE | 2021-01-21 06:35 | NUR ---
PT NOW IS IN SR WITH PACS RATE 112 AND PVCS
--- NOTE | 2021-01-21 06:56 | NUR ---
ATTEMPT SECOND IV ACCESS X2 WITHOUT SUCCESS. WILL REPORT TO ONCOMING NURSE OF NEED TO ADMINISTER IV ZOSYN.
--- NOTE | 2021-01-21 07:00 | NUR ---
N2N REPORT EXCHANGED BEDSIDE. PATIENT IS STABLE AND AWAKE. PATIENT IS STILL REFUSING NGT PLACEMENT. PATIENT HAS MULTIPLE SKIN TEARS IN BOTH ARMS. ABD IS DISTENDED WITH ACTIVE BOWEL SOUNDS.LUNGS ARE CLEAR ON ROOM AIR NO EDEMA HEART TELE SHOWS TACHY ARRHYTHMIA. PATIENT REPORTS BACK PAIN FROM LYING IN BED TOLERABLE. PATIENT REPOSITIONED.
--- NOTE | 2021-01-21 08:25 | NUR ---
ROUNDED WITH DR HENLEY AND JOHANNA AT BEDSIDE. EDUCATED AND EXPLAINED IMPORTANCE OF IS USE AND NEED FOR NGT. PATIENT IS STILL REFUSING NGT. PATIENT HAS ABD PAIN ON RIGHT SIDE. PATIENT WAS INFORMED OFF CURRENT STATUS AND TREATMENT PLAN.
--- NOTE | 2021-01-21 08:50 | NUR ---
PATIENT DAUGHTER WAS UPDATED ON STATUS. PATIENT TALKED TO DAUGHTER OVER THE PHONE. PATIENT DECIDED WITH DAUGHTER OVER THE PHONE TO STAY HERE AT [facility]. DR HENLEY INFORMED.
--- NOTE | 2021-01-21 11:32 | NUR ---
PATIENT IS RESTING IN BED. FAMILY FRIENDS WITH ACCESS CODE WERE GIVEN UP DATES ON HOW THE PATIENT IS DOING MINIAL INFO GIVEN.
[2021-01-21 13:28] LABS: ACT PARTIAL THROMBO TIME 27.2 SECONDS (20.0-32.5); INTERNATIONAL NORMALIZED RATIO 1.1 RATIO (0.7-1.3); PROTHROMBIN TIME 11.1 SECONDS (9.0-12.5)
--- NOTE | 2021-01-21 13:38 | NUR ---
STARTED PATIENT ON HEPARIN GTT. FAMILY AND PATIENT INFORMED. PATIENT WAS ABLE TO INDEPENDENTLY USE BEDSIDE COMMODE WITH NURSE IN ROOM. PATIENT URINATED 350ML YELLOW CLEAR. PATIENT HEART RATE IN THE STEFANY 80S WILL CONTINUE TO MONITOR.
--- NOTE | 2021-01-21 14:44 | NUR ---
DAUGHTER AT BEDSIDE. HELPED PATIENT BRUSH HER TEETH AND WASH HER FACE. PATIENT RESTING.
--- NOTE | 2021-01-21 16:38 | NUR ---
PATIENT IS RESTING IN ROOM. PATIENTS HEART RATE IN THE 80S POSSIBLE SA.
--- NOTE | 2021-01-21 17:43 | NUR ---
PATIENTS SHEETS CHANGED AND HELPED TO BEDSIDE COMMODE. PATIENT EAT LESS THEN 25% OF MEAL. IS WAS USED BY PATIENT 10 TIMES. PATIENT EDUCATED ON USING 10 TIMES AN HOUR TO IMPROVE QUALITY OF BREATHING SINCE O2 IS LOW 93.
--- NOTE | 2021-01-21 18:50 | NUR ---
SBAR RECEIVED FROM IRENE VENEGAS. PATIENT LYING IN BED. CALL LIGHT WITHIN REACH.
--- NOTE | 2021-01-21 20:33 | NUR ---
ASSESSMENT COMPLETE. DRESSING CHANGE TO BUE SKIN TEARS, TOLERATED WELL. PATIENT DENIES PAIN AT THIS TIME. PM MEDS ADMINISTERED. NO CONCERNS EXPRESSED AT THIS TIME CALL LIGHT WITHIN REACH.
[2021-01-22] VITALS (12 sets, daily range): BP systolic 127–171; BP diastolic 57–75
--- NOTE | 2021-01-22 00:23 | NUR ---
RESTING QUIETLY EYES CLOSED. CALL LIGHT WITHIN REACH.
--- NOTE | 2021-01-22 03:39 | NUR ---
PATIENT INCONTINENT OF STOOL. ASSIST WITH CLEANING AND PARTIAL LINEN CHANGE.
[2021-01-22 05:17] LABS: HEMATOCRIT 34.9 % (37.0-47.0); HEMOGLOBIN 11.2 g/dl (12.0-16.0); MEAN CELL VOLUME 94.3 fL CALC (80.0-100.0); MEAN CORPUSCULAR HGB 30.3 pG CALC (26.0-32.0); MEAN CORPUSCULAR HGB CONC 32.1 g/dL CAL (32.0-36.0); NEUT# 8.41 thou/uL (2.00-7.15); RED BLOOD COUNT 3.7 mill/uL (4.20-5.60); RED CELL DISTRI WIDTH 14.8 % (11.5-15.5)
[2021-01-22 05:26] LABS: ANION GAP 10 (6-22 (CALC)); BUN 14 mg/dL (8-23); BUN/CREATININE RATIO 24 (12-20 (CALC)); CARBON DIOXIDE 24 mmol/l (22-30); CHLORIDE 103 mmol/l (95-108); CREATININE 0.6 mg/dL (0.5-1.0); GFR > 60 ML/MIN (>=60 (CALC)); GFR FOR AFR.AMER. > 60 ML/MIN (>=60 (CALC)); MAGNESIUM 1.9 mg/dL (1.6-2.3); POTASSIUM 4.1 mmol/l (3.5-5.1); SODIUM 133 mmol/l (137-146)
--- NOTE | 2021-01-22 09:20 | NUR ---
MEDICATIONS GIVEN PER EMAR PT TOLERATED WELL.
--- NOTE | 2021-01-22 10:10 | NUR ---
C/O PAIN TO RT HIP ROLLED TOWEL PLACED PER PT REQUEST WITH GOOD RESULTS.
--- NOTE | 2021-01-22 12:30 | NUR ---
IV ABT INFUSING AT THIS TIME TOLERATING WELL.
--- NOTE | 2021-01-22 13:50 | NUR ---
ASSISTED TO BATHROOM WITH STANDBY ASSIST.
--- NOTE | 2021-01-22 14:29 | NUR ---
DAUGHTER AT BEDSIDE VISITING.
--- NOTE | 2021-01-22 14:32 | NUR ---
REPORT RECEIVED FROM IRENE NAPIER
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
--- NOTE | 2021-01-22 16:20 | NUR ---
PT APPEARS TO BE SLEEPING IN SEMI FOWLERS POSITION;RESPIRATIONS EVEN AND UNLABORED ON RA;NO S/S OF DISTRESS NOTED;TELE MONITORING IN PLACE;IV SITE PATENT INFUSING LR WITH EASE;ALL SAFETY PRECAUTIONS REMAIN IN PLACE WITH BED IN THE LOWEST POSITION AND BED ALARM ON FOR SAFETY;CALL LIGHT IN REACH;WILL CONTINUE TO MONITOR
--- NOTE | 2021-01-23 01:00 | NUR ---
PATIENT HAD A LARGE BOUT OF STOOL INCONTINECE AT THIS TIME. AWOKEN BY IV "BEEPING", PATIENT UP TO THE RESTROOM TO WASH UP, BED LINENS CHANGED AND PATIENT ASSITED BACK TO BED BY IRON ERECTOR.
[2021-01-23 04:00] VITALS: BP 165/81
--- NOTE | 2021-01-23 04:51 | NUR ---
PATIENT SLEEPING AT THIS TIME, AWOKEN BY WRITTER. NO APAPRENT DISTRESS DENIES ANY CURRENT NEEDS. CALL LIGHT AND BEDSIDE TABLE WITHIN REACH.
[2021-01-23 05:39] LABS: HEMATOCRIT 37.5 % (37.0-47.0); HEMOGLOBIN 12.2 g/dl (12.0-16.0); IMMATURE GRANULOCYTES 0.9 % (0.0-5.0); MEAN CELL VOLUME 93.3 fL CALC (80.0-100.0); MEAN CORPUSCULAR HGB 30.3 pG CALC (26.0-32.0); MEAN CORPUSCULAR HGB CONC 32.5 g/dL CAL (32.0-36.0); NEUT# 7.15 thou/uL (2.00-7.15); RED BLOOD COUNT 4.02 mill/uL (4.20-5.60); RED CELL DISTRI WIDTH 14.7 % (11.5-15.5)
[2021-01-23 06:00] LABS: ANION GAP 8 (6-22 (CALC)); BUN 13 mg/dL (8-23); BUN/CREATININE RATIO 24 (12-20 (CALC)); CARBON DIOXIDE 27 mmol/l (22-30); CHLORIDE 100 mmol/l (95-108); CREATININE 0.5 mg/dL (0.5-1.0); GFR > 60 ML/MIN (>=60 (CALC)); GFR FOR AFR.AMER. > 60 ML/MIN (>=60 (CALC)); MAGNESIUM 1.8 mg/dL (1.6-2.3); POTASSIUM 4.2 mmol/l (3.5-5.1); SODIUM 132 mmol/l (137-146)
--- NOTE | 2021-01-23 09:10 | NUR ---
PT LAYING IN BED DISCUSSING POC WITH DR. HENLEY AND IVANNA SPENCER. PT IS ENCOURAGED TO CALL FOR HELP WHEN NEEDED. PATIENT STATES NO PAIN AT THIS TIME.
[2021-01-23 10:45] VITALS: BP 149/58
[2021-01-23 14:30] VITALS: BP 150/79
--- NOTE | 2021-01-23 16:39 | NUR ---
PT IS RESTING/SLEEPING IN ROOM. PT IS ABLE TO TOLERATE FOOD. DENIES ANY N/V AND PAIN. PT UNDERSTANDS TO USE CALL LIGHT WHEN ASSISTANCE IS NEEDED. DAUGHTER WAS AT BEDSIDE IN REGARDS TO D/C INFORMATION.
[2021-01-23 19:00] VITALS: BP 121/65
--- NOTE | 2021-01-23 19:50 | NUR ---
PT RESTING IN BED, NO SIGNS OF DISTRESS NOTED, RESP EVEN AND UNLABORED. PT ALERT AND ORIENTED X4, DISCUSSED POC, PT DENIES ANY PAIN AT THIS TIME.+1 PITTING EDEMA TO BLE NOTED. DRESSINGS TO ABD CDI, ASSESSMENT COMPLETED, CALL LIGHT IN REACH,CONTINUE TO MONITOR.
[2021-01-24] VITALS: BP 159/78
--- NOTE | 2021-01-24 | NUR ---
PT RESTING IN BED, WITH EYES CLOSED, NO SIGNS OF DISTRESS NOTED, RESP EVEN AND UNLABORED. CALL LIGHT IN REACH,CONTINUE TO MONITOR.
[2021-01-24 04:00] VITALS: BP 161/88
--- NOTE | 2021-01-24 04:00 | NUR ---
PT RESTING IN BED, NO SIGNS OF DISTRESS NOTED, RESP EVEN AND UNLABORED. CALL LIGHT IN REACH,CONTINUE TO MONITOR.
--- NOTE | 2021-01-24 08:00 | NUR ---
REPORT RECEIVED FROM DELFINO LEIGH. PT RESTING SEMI-FOWLERS, VSS, CALL LIGHT WITHIN REACH. PT DENIES PAIN, SOB OR DISCOMFORT. INSTRUCTED PT TO CALL FOR ASSISTANCE, VERBALIZES UNDERSTANDING. WILL CONTINUE TO MONITOR.
[2021-01-24 08:53] VITALS: BP 131/64
[2021-01-24] MEDS ORDERED: FLORASTOR250 M1 PO (10:39)
[2021-01-24] MEDS ORDERED: AMOX/K CLAV875 M1 PO (10:40)
[2021-01-24] MEDS ORDERED: XARELTO20 MG PO (10:42)
[2021-01-24] MEDS ORDERED: TOPROL XL25 M1 PO (10:42)
[2021-01-24] MEDS ORDERED: TRAMADOL HCL50 MG PO (10:47)
[2021-01-24 11:13] VITALS: BP 139/77
--- NOTE | 2021-01-24 12:01 | NUR ---
PT INFORMED OF DISCHARGE TO HOME WITH HOMEHEALTH. CASE MANAGEMENT IN TO SEE PT, HH SETUP, PT AGREABLE. FAMILY NOTIFIED OF PT'S DISCHARGE. RIDE WILL BE AVAILABLE AT 1400. PT STATES UNDERSTANDING, TOLERATING DIET NO C/O BM OR ABDOMINAL PAIN. CALL LIGHT WITHIN REACH, INSTRUCTED PT TO CALL FOR ASSISTANCE, VERBALIZES UNDERSTANDING.
--- NOTE | 2021-01-24 14:06 | NUR ---
PT DISCHARGED AT THIS TIME IN STABLE CONDITION. FAMILY WITH PT, ALL BELONGINGS SENT WITH PT. PT TELEMETRY DISCONNECTED AND AT NURSES STATION.
== END 2021-01-24 14:00 | disposition home health service (06) | DRG 341 ==
LOC: ED 18:45 → ED-I 22:31 → ED 22:47 → MS2 22:48 → ICU 01-21 05:00 → MS2 01-22 15:20
PROVIDERS: Nurse Practitioner; Surgery; ADMIT Hospitalist; ATTEND Internal Medicine
PROC: 0DTJ4ZZ Resection of Appendix, Percutaneous Endoscopic Approach (ICD-10-PCS; principal; 2021-01-16)
DX: K56.7 Ileus, unspecified (principal); K35.32 Acute appendicitis with perforation, localized peritonitis, and gangrene, without abscess; N17.9 Acute kidney failure, unspecified; E87.1 Hypo-osmolality and hyponatremia; E78.5 Hyperlipidemia, unspecified; E87.8 Other disorders of electrolyte and fluid balance, not elsewhere classified; E86.0 Dehydration; I10 Essential (primary) hypertension; R41.0 Disorientation, unspecified; I48.0 Paroxysmal atrial fibrillation; B96.20 Unspecified Escherichia coli [E. coli] as the cause of diseases classified elsewhere; Z85.820 Personal history of malignant melanoma of skin; Z86.73 Personal history of transient ischemic attack (TIA), and cerebral infarction without residual deficits; Z20.822 Contact with and (suspected) exposure to COVID-19
CPT/HCPCS: G0378; J0131; J1644; J1650; J2710; Q9967; S0164

== ENCOUNTER 2021-02-07 14:32 | Inpatient (IN) | payer MEDICARE, OTHER ==
[~2021-02-07] VITALS: Ht 165.1 cm; Wt 52.0 kg
[2021-02-07] VITALS (9 sets, daily range): BP systolic 120–152; BP diastolic 50–83
[~2021-02-07 14:32] MED LIST changes: +AMOX/K CLAV875 M1 PO; +ELAVIL25 M1 PO; +FLORASTOR250 M1 PO; +TOPROL XL25 M1 PO; +TRAMADOL HCL50 MG PO; +TRAMADOL HYDROC50 M1; +XARELTO20 MG PO
--- NOTE | 2021-02-07 14:40 | NUR ---
PT TO ROOM 15 VIA WC ABLE TO STAND AND TRANSFER SELF WITHOUT ASSIST.
[2021-02-07 15:28] LABS: IMMATURE GRANULOCYTES 0.3 % (0.0-5.0); MEAN CELL VOLUME 98.3 fL CALC (80.0-100.0); MEAN CORPUSCULAR HGB 26.9 pG CALC (26.0-32.0); MEAN CORPUSCULAR HGB CONC 27.3 g/dL CAL (32.0-36.0); NEUT# 1.5 thou/uL (2.00-7.15); RED BLOOD COUNT 1.75 mill/uL (4.20-5.60); RED CELL DISTRI WIDTH 16.7 % (11.5-15.5)
[2021-02-07 15:29] LABS: HEMATOCRIT 17.2 % (37.0-47.0); HEMOGLOBIN 4.7 g/dl (12.0-16.0)
[2021-02-07 15:39] LABS: ALBUMIN 3.1 g/dL (3.2-5.0); ALKALINE PHOSPHATASE 72 u/l (38-126); ANION GAP 12 (6-22 (CALC)); BILIRUBIN, TOTAL 0.5 mg/dL (0.0-1.4); BUN 15 mg/dL (8-23); BUN/CREATININE RATIO 23 (12-20 (CALC)); CARBON DIOXIDE 23 mmol/l (22-30); CHLORIDE 103 mmol/l (95-108); CREATININE 0.7 mg/dL (0.5-1.0); GFR > 60 ML/MIN (>=60 (CALC)); GFR FOR AFR.AMER. > 60 ML/MIN (>=60 (CALC)); POTASSIUM 4.5 mmol/l (3.5-5.1); SGOT/AST 24 u/l (9-36); SODIUM 133 mmol/l (137-146); TOTAL PROTEIN 6.2 g/dL (6.3-8.2)
--- NOTE | 2021-02-07 15:45 | NUR ---
PT RESTING IN BED WITH NO COMPLAINTS, AWAITING BLOOD TRANSFUSION
--- NOTE | 2021-02-07 16:28 | NUR ---
CONSENT SIGNED W [employer] HEAD FOR BLOOD TRANSFUSION, PT EDUCATED ON REACTIONS AND RISKS VS BENEFITS
--- NOTE | 2021-02-07 17:13 | NUR ---
STAYED WITH PT FOR FIRST 15MINS OF TRANSFUSION, VSS, NO SIGNS OF A REACTION, 2 RN BEDSIDE VERIFICATION
--- NOTE | 2021-02-07 17:30 | NUR ---
PT EATING DINNER WHILE RECIVING BLOOD PRBC
--- NOTE | 2021-02-07 18:51 | NUR ---
REPORT GIVEN TO RED BONILLA, PT STILL TRANSFUSING BLOOD AND ABX, TRANSPORTED TO FLOOR VIA WHEELCHAIR
--- NOTE | 2021-02-07 19:15 | NUR ---
PT ARRIVED TO MED SURG UNIT VIA WC ACCOMPANIED BY IRENE CASE. PT APPEARS TO BE STABLE AT THIS TIME. SELF AMBULATED TO RESTROOM AND BACK TO THE BED. PRBC RUNNING. IV SITE TO RAC OCCLUDED UPON PT AMBULATING BACK TO THE BED.
--- NOTE | 2021-02-07 19:20 | NUR ---
ANTIBIOTICS WERE BROUGHT UP WITH THE PT SCANNED GIVEN IN ED, BUT NOT YET SPIKED OR ADMINISTERED. WILL ADMINISTER THESE PRIOR TO STARTING 2ND UNIT OF BLOOD BECAUSE 2ND IV SITE IS OCCLUDED UPON PT ARRIVING TO THE FLOOR AND SHE REFUSES ANOTHER IV ACCESS AT THIS TIME.
--- NOTE | 2021-02-07 20:08 | NUR ---
FIRST UNIT OF PRBC ARE COMPLETE AT THIS TIME. V/S STABLE, PT TOLERATED WELL. DENIES ANY SYMPTOMS.
--- NOTE | 2021-02-07 22:06 | NUR ---
2ND UNIT OF PRBC ADMINISTERED AT THIS TIME. ADVERSE REACTIONS DISCUSSED WITH THE PT, SHE VERBALIZED UNDERSTANDING AND SYMPTOMS TO REPORT. I WILL REMAIN IN WITH PT FOR OBS AT THIS TIME. LIGHTS AND TV TURNED OFF FOR COMFORT.
--- NOTE | 2021-02-07 23:05 | NUR ---
v/s assessed, pt appears to be tolerating PRBC. Denies any adverse symptoms at this time.
--- NOTE | 2021-02-07 23:27 | NUR ---
Pt appears to be resting, resp even and non-labored. No s/o distress noted at this time.
[2021-02-08] VITALS (7 sets, daily range): BP systolic 121–140; BP diastolic 62–79
--- NOTE | 2021-02-08 00:33 | NUR ---
THIRD UNIT OF PRBC BEING ADMINISTERED AT THIS TIME. PT RE-EDUCATED ON REACTIONS TO WATCH FOR, VERBALIZED UNDERSTANDING. POC AND MEDICATIONS DISCUSSED AT THIS TIME. PSYCHOLOGICAL OPERATIONS IS REMAINING WITH THE PT AT THIS TIME FOR OBS.
--- NOTE | 2021-02-08 00:47 | NUR ---
PT V/S ASSESSED, SHE DENIES ANY ADVERSE SYMPTOMS. V/S STABLE AT THIS TIME. ADVISED HER TO CALL NEEDS ARISE OR IF SHE NOTICES ANY ADVERSE REACTIONS/THESE HAVE BEEN REVIEWED WITH PT. SHE VERBALIZES UNDERSTANDING.
--- NOTE | 2021-02-08 02:52 | NUR ---
PRBC 3RD UNIT COMPLETED AT THIS TIME. V/S ARE STABLE. PT DENIES ANY SYMPTOMS
--- NOTE | 2021-02-08 03:37 | NUR ---
PT IS SLEEPING, NO S/O DISTRESS NOTED AT THIS TIME.
--- NOTE | 2021-02-08 04:22 | NUR ---
protonix drip running at 10mls per hour as orders provide. pt is sleeping at this time.
--- NOTE | 2021-02-08 06:48 | NUR ---
CALLED LAB TO OBTAIN LABS, THEY ARE IN WITH THE PT AT THIS TIME OBTAINING LABS.
[2021-02-08 07:10] LABS: HEMATOCRIT 31.7 % (37.0-47.0); HEMOGLOBIN 9.8 g/dl (12.0-16.0)
--- NOTE | 2021-02-08 08:59 | NUR ---
PT LAYING IN BED. A&O X3. NO DISTRESS NOTED. PT REPORTS FEELING BETTER THIS AM. CLEAR BREATH SOUNDS UPON AUSCULTATION. HYPOACTIVE BOWEL SOUNDS X4 QUADRANTS; PT ADVANCED TO FULL LIQUID DIET THIS MORNING PER MD. IVS HEALTHY AND PATENT WITH PROTONIX GGT INFUSING 10ML/HR. ELECTRONIC ASSEMBLY IN PLACE WITH A READING OF SR/IVCD/1DEGREE AVB WITH A RATE OF 73 BPM PER ED MONITORING. ASSESSMENT COMPLETED. DISCUSSED POC. CALL LIGHT WITHIN REACH.
--- NOTE | 2021-02-08 10:57 | NUR ---
dr larios and john chaudhari dehairer at bedside discussing poc
--- NOTE | 2021-02-08 11:56 | NUR ---
PT SITTING IN BED. DENIES ANY PAIN AT THIS TIME; TRAMADOL ALSO REFUSED. NO OTHER NEEDS AT THIS TIME. CALL LIGHT WITHIN REACH.
--- NOTE | 2021-02-08 14:20 | NUR ---
WOUND TO LT ELBOW CLEANSED, DRIED, AND COVERED WITH TELFA DRESSING SECURED WITH KERLEX; PER BASE CLOTH INSPECTOR ORDERS. RT INNER FA SKIN TEAR ALSO NOTED; TELFA ALSO APPLIED. SEE CHART FOR PHOTOS. NO OTHER NEEDS AT THIS TIME. ASSESSMENT COMPLETED. DISCUSSED POC. CALL LIGHT WITHIN REACH.
[2021-02-08 16:15] LABS: HEMATOCRIT 32.4 % (37.0-47.0); HEMOGLOBIN 9.9 g/dl (12.0-16.0)
--- NOTE | 2021-02-08 17:54 | NUR ---
URINE SAMPLE OBTAINED. URINE LABELED WITH THIS WRITERS INITIALS, DATE AND TIME. SPECIMEN TAKEN TO THE LAB.
[2021-02-08 18:09] LABS: URINE BILIRUBIN - DIPSTICK NEGATIVE (NEGATIVE); URINE BLOOD DIPSTICK NEGATIVE (NEGATIVE); URINE COLOR YELLOW; URINE GLUCOSE - DIPSTICK NEGATIVE (NEGATIVE); URINE KETONE NEGATIVE (NEGATIVE); URINE LEUK ESTERASE NEGATIVE (NEGATIVE); URINE PROTEIN - DIPSTICK TRACE mg/dL (NEG-TRACE); URINE SPECIFIC GRAVITY 1.025; URINE UROBILINOGEN - DIPSTICK 0.2 E.U./dL (0.2)
[2021-02-08 18:11] LABS: URINE NITRITE - DIPSTICK NEGATIVE (Negative)
--- NOTE | 2021-02-08 19:33 | NUR ---
PT REPORTS FEELING WELL. DENIES ANY NEEDS AT THIS TIME. LIGHTS ARE ON LOW WITH TV ON AND PERSONAL ITEMS W/IN REACH.
--- NOTE | 2021-02-08 20:21 | NUR ---
PT MEDICATED ORDERS PROVIDE. HER DAUGHTER CALLED, PROVIDED PASSCODE AND POC DISCUSSED.
[2021-02-09] VITALS: BP 154/83
[2021-02-09 00:30] LABS: HEMATOCRIT 29.3 % (37.0-47.0); HEMOGLOBIN 9.2 g/dl (12.0-16.0)
--- NOTE | 2021-02-09 02:10 | NUR ---
PT APPEARS TO BE SLEEPING, NO S/O DISTRESS NOTED. RESP EVEN AND NON-LABORED.
[2021-02-09 04:00] VITALS: BP 139/83
[2021-02-09 05:07] LABS: HEMATOCRIT 29.8 % (37.0-47.0); HEMOGLOBIN 9.4 g/dl (12.0-16.0); MEAN CORPUSCULAR HGB 27.3 pG CALC (26.0-32.0); MEAN CORPUSCULAR HGB CONC 31.5 g/dL CAL (32.0-36.0); RED BLOOD COUNT 3.44 mill/uL (4.20-5.60); RED CELL DISTRI WIDTH 17.4 % (11.5-15.5)
[2021-02-09 05:10] LABS: MEAN CELL VOLUME 86.6 fL CALC (80.0-100.0)
--- NOTE | 2021-02-09 06:53 | NUR ---
REPORT FROM MIC BONILLA. ASSUMED PT CARE.
[2021-02-09 07:07] LABS: ALBUMIN 2.7 g/dL (3.2-5.0); ALKALINE PHOSPHATASE 64 u/l (38-126); ANION GAP 9 (6-22 (CALC)); BILIRUBIN, TOTAL 0.7 mg/dL (0.0-1.4); BUN 9 mg/dL (8-23); BUN/CREATININE RATIO 15 (12-20 (CALC)); CARBON DIOXIDE 23 mmol/l (22-30); CHLORIDE 106 mmol/l (95-108); CREATININE 0.6 mg/dL (0.5-1.0); GFR > 60 ML/MIN (>=60 (CALC)); GFR FOR AFR.AMER. > 60 ML/MIN (>=60 (CALC)); POTASSIUM 4.7 mmol/l (3.5-5.1); SODIUM 134 mmol/l (137-146); TOTAL PROTEIN 5.7 g/dL (6.3-8.2)
[2021-02-09 07:08] LABS: SGOT/AST 47 u/l (9-36)
[2021-02-09 07:30] VITALS: BP 146/73
--- NOTE | 2021-02-09 07:30 | NUR ---
PT NOTED SITTING UP IN BED. NO APPARENT DISTRESS NOTED. PT ALERT AND ORIENTED X4. PT DENIES ANY PAIN OR DISCOMFORT. IV SITE APPEARS HEALTHY. PROFESSOR OF PHYSICAL EDUCATION IN PLACE. DISCUSSED POC. PT VERBALIZED UNDERSTANDING. WARM BLANKET AND BREAKFAST TRAY PROVIDED. PT DENIES ANY OTHER CURRENT WANTS OR NEEDS. CALL LIGHT WITHIN REACH. WILL CONTINUE TO MONITOR.
[2021-02-09 10:49] VITALS: BP 131/73
--- NOTE | 2021-02-09 11:45 | NUR ---
PT SITTING UP IN BED. LUNCH TRAY PROVIDED. PT TOLERATING WELL. NO APPARENT DISTRESS NOTED. PT DENIES ANY PAIN OR DISCOMFORT AT THIS TIME. CALL LIGHT WITHIN REACH. WILL CONTINUE TO MONITOR.
--- NOTE | 2021-02-09 13:11 | NUR ---
DR. WOLFF AT BEDSIDE TO DISCUSS POC.
--- NOTE | 2021-02-09 15:49 | NUR ---
pt resting in bed. no apparent distress noted. bowel prep started at this time. pt denies any pain or discomfort. bsc at bedside call light within reach. instructed pt to call for assistance when getting out of bed. continue to monitor.
[2021-02-09 16:03] VITALS: BP 150/84
[2021-02-09 19:04] VITALS: BP 164/70
--- NOTE | 2021-02-09 19:25 | NUR ---
ROOM IS DARK, TV IS ON. PT IN HIGH FOWLERS IN THE BED. STATES THAT SHE GOT TIRED SO SHE HASN'T HAD ANY OF THE NU-LITELY IN 45 MINUTES. SHE HAS A FULL CUP ON BST W/IN REACH. I REVIEWED POC AND TREATMENT PLAN WITH HER, SHE VERBALIZED UNDERSTANDING. I DID ENCOURAGE HER TO DRINK MUCH SHE COULD PRIOR TO MIDNIGHT AND REMINDED HER THAT IT SHOULD MAKE HER HAVE STOOL OUTPUT UNTIL CLEAR, VERBALIZED UNDERSTANDING AGAIN. ASSESSMENT COMPLETED AT THIS TIME. CALL LIGHT AT SIDE AND PT ENCOURAGED TO CALL NEEDS ARISE.
--- NOTE | 2021-02-09 20:51 | NUR ---
PT MEDICATED ORDERS PROVIDE. SHE C/O FEELING NAUSEOUS WHEN SHE HAS TO DRINK THE THE NU-LYTELY. REPORTS STOOL OUTPUT, BUT NOT WATERY CLEAR YET AT THIS TIME. REPORTS FEELING COLD, 4 BLANKETS PROVIDED AND ROOM TURNED WARM IT WILL GO. AFEBRILE. ADVISED TO CALL ME IF ANY OTHER SYMPTOMS ARISE OR IF THEY WORSEN, VERBALIZED UNDERSTANDING. SHE IS STILL TALKATIVE AND WATCHING "HER SHOW" ON THE TV. CALL LIGHT AT SIDE W/IN REACH.
--- NOTE | 2021-02-09 21:03 | NUR ---
SPOKE TO PTS DAUGHTER REGARDING POC AND TRANSFERRED HER CALL TO THE PTS ROOM PER REQUEST. ASSISTED PT IN ANSWERING CALL.
--- NOTE | 2021-02-09 22:36 | NUR ---
IV ANTIBIOTIC THERAPY COMPLETED AT THIS TIME. NULYTELY AT BEDSIDE, PT REFUSING TO DRINK ANY FURTHER AT THIS TIME.
[2021-02-10] VITALS (11 sets, daily range): BP systolic 135–184; BP diastolic 60–85
--- NOTE | 2021-02-10 04:18 | NUR ---
LAB IS AT BEDSIDE
[2021-02-10 05:11] LABS: HEMATOCRIT 31.8 % (37.0-47.0); HEMOGLOBIN 9.9 g/dl (12.0-16.0); MEAN CELL VOLUME 87.8 fL CALC (80.0-100.0); MEAN CORPUSCULAR HGB 27.3 pG CALC (26.0-32.0); MEAN CORPUSCULAR HGB CONC 31.1 g/dL CAL (32.0-36.0); RED BLOOD COUNT 3.62 mill/uL (4.20-5.60); RED CELL DISTRI WIDTH 17.1 % (11.5-15.5)
[2021-02-10 05:27] LABS: ANION GAP 10 (6-22 (CALC)); BUN 5 mg/dL (8-23); BUN/CREATININE RATIO 9 (12-20 (CALC)); CARBON DIOXIDE 24 mmol/l (22-30); CHLORIDE 106 mmol/l (95-108); CREATININE 0.6 mg/dL (0.5-1.0); GFR > 60 ML/MIN (>=60 (CALC)); GFR FOR AFR.AMER. > 60 ML/MIN (>=60 (CALC)); POTASSIUM 4.4 mmol/l (3.5-5.1); SODIUM 136 mmol/l (137-146)
--- NOTE | 2021-02-10 06:23 | NUR ---
PT IS OFF UNIT VIA STRETCHER ACCOMPANIED BY OR NURSE. OR NURSE WAS VERY CONCERNED THAT PT HAD NOT COMPLETED THE PREP, I ADVISED HER THAT I WAS AWARE AND PT REFUSED TO COMPLETE PREP ONLY COMPLETING A THIRD OF PREP. PT BELONGINGS RAMA OF 1 GOLD WATCH AND 1 GOLD HEART NECKLACE, GIVEN TO CREDIT ADJUSTER.
--- NOTE | 2021-02-10 07:00 | NUR ---
RECIEVED REPORT FROM MIC. IRENE
--- NOTE | 2021-02-10 07:15 | NUR ---
BAG OF JEWELERY TAKEN TO SAFE BY NARCOTICS AND VICE DETECTIVE AND TELEPHONE STATION REPAIRER MICHELLE.
--- NOTE | 2021-02-10 08:00 | NUR ---
PT ARRIVED VIA STRETCHER ACCOMPANIED BY ANGEL AND JACKIE RN; PT IN STABLE CONDITION; AWAKE AND ALERT; ABLE TO TRANSFER FROM STRECTHER TO BED WITH STEADY GAIT; PER ANGEL PT TO HAVE REPEAT COLONOSCOPY TOMORROW; PT TO TAKE MAG CITRATE; PT EDUCATED ON THE IMPORTANCE OF FINISHING PREP TO PROPERLY CONDUCT COLONOSCOPY; PT VERBALIZED UNDERSTANDING. NEW IV SITE #20G TO RFA; NEW DRESSING APPLIED TO LT ELBOW WOUND .
--- NOTE | 2021-02-10 08:01 | NUR ---
PT ARRIVED TO [facility] ROOM 271 VIA STRETCHER ACCOMPAINED BY OR STAFF.BED SIDE REPORT RECIEVED BY OR NURSE. PT IS A/O X3. ASSESSMENT AND VITALS COMPLETED BP 135/69, HR 96, O2 100% ON ROOM AIR. RESPIRATIONS ARE EVEN AND UNLABORED WITH NO DISTRESS NOTED. LUNG SOUNDS ARE CLEAR. HEART RHYTHM NORMAL WITH TELE IN PLACE. BOWEL SOUNDS ARE ACTIVE, PT INCONT OFBM AT THIS TIME. #20G RFA INFUSING WITH IVF PER ORDER, SITE REMAINS HEALTHY AND PATENT. SKIN INTACT. 2+ EDEMA NOTED TO BLE. PT DENIES OF ANY PAINS OR DISCOMFORTS. ALL SAFTEY PRECAUTIONS ARE IN PLACE WITH CALL LIGHT IN REACH. WILL CONTINUE TO MONITOR.
--- NOTE | 2021-02-10 08:15 | NUR ---
SCHEDULED MEDICATIONS ADMINISTERED. PT EDUCATED ON MAG CITRATE AND NEED TO DRINK. PT VERBALIZED UNDERSTANDING.
--- NOTE | 2021-02-10 10:49 | NUR ---
NATURAL RESOURCE SPECIALIST INFORMED BY CANDIDO IN ER THAT HEART RHYTHM HAS CHANGED FROM SR TO SA. DR YOUNG TO BE INFORMED.
--- NOTE | 2021-02-10 11:19 | NUR ---
DR YOUNG AND ROXANA,ANVLADIMIR AT BEDSIDE
--- NOTE | 2021-02-10 11:45 | NUR ---
PT RESTING IN SEMI FOWLERS POSITION. RESPIRATIONS ARE EVEN AND UNLABORED ON ROOM AIR. #20G RFA REMAINS INFUSING WITH IVF PER ORDER, SITE APPEARS HEALTHY AND PATENT. TELE MONITORING IN PLACE. I.S PROVIDED TO PT. PT EDUACTED IN USE, DEMENSTRATION PROVIDED BACK. PT DENIES OF ANY ADDITIONAL NEEDS. AL SAFTEY PRECAUTIONS ARE IN PLACE WITH CALL LIGHT IN REACH. WILL CONTINUE TO MONITOR.
--- NOTE | 2021-02-10 14:33 | NUR ---
HALF OF MAG CITRATE COMPLETED. PT ENCOURAGED TO CONTINUE DRINKING. PT VERBALIZED UNDERSTANDING.
--- NOTE | 2021-02-10 14:58 | NUR ---
FIRST BOTTLE OF MAG CITRATE COMPLETED. SECOND BOTTLE ADMINSITERED. PT TOELRATING WELL.
--- NOTE | 2021-02-10 16:34 | NUR ---
PT RESTING IN SEMI FOWLERS POSITION. #20G RFA INFUSING WITH IVF PER ORDER, SITE REMAINS HEALTHY AND PATENT. TELE MONITORING IN PLACE. PT HALF WAY COMPLETED WITH SECOND BOTTLE OF MAG CITRATE.PT DENIES OF ANY PAINS OR DISCOMFORTS AT THIS TIME. ALL SAFTEY PRECAUTIONS ARE IN PLACE. WILL CONTINUE TO MONITOR
--- NOTE | 2021-02-10 17:06 | NUR ---
DAUGHTER AT BEDSIDE
--- NOTE | 2021-02-10 18:45 | NUR ---
REPORT RECEIVED FROM Fransisca LESLIE LPN
--- NOTE | 2021-02-10 19:10 | NUR ---
PATIENT COMPLETED MAGNESIUM CITRATE AT THIS TIME. PATIENT AWARE SHE IS TO BE NPO AT MIDNIGHT.
--- NOTE | 2021-02-10 19:15 | NUR ---
PATIENT ALERT AND ORIENTED X 3. ASSESMENT COMPLETED AT THIS TIME. CLEAR LUNG SOUNDS BILATERALY AND THROUGHOUT BASES. HEART SOUNDS NORMAL WITH LAST TELE READING SR WITH PVS 75. BOWEL SOUNDS ACTIVE, INCONTINENT OF BOWELS AT THIS TIME. #20G RFA INFUSING WITH IVF PER EMAR, SITE REMAINS HEALTHY AND PATENT. SKIN INTACT. 2+ EDEMA NOTED TO BLE. PT DENIES OF ANY PAINS OR DISCOMFORTS. PLAN OF CARE REVIEWED WITH PATIENT. CALL LIGHT AND BEDSIDE TABLE WTIHIN REACH.
--- NOTE | 2021-02-10 19:15 | NUR ---
LARGE INCONTINENT BOWEL, ASSITED BACK TO BED WITH ASSIT OF ONE, BY Iván GAN CNA. PT CLEANED UP AND BED CHANGED.
[2021-02-11] VITALS (12 sets, daily range): BP systolic 105–164; BP diastolic 50–91
--- NOTE | 2021-02-11 00:06 | NUR ---
PATIENT UP TO THE BSC AT THIS TIME. LARGE INCONTINENT STOOL. ASSIST X1.
--- NOTE | 2021-02-11 04:04 | NUR ---
patient sleeping soundly, awoken by writter. denies any current needs. call light and bedside table within reach.
[2021-02-11 04:59] LABS: HEMATOCRIT 35.9 % (37.0-47.0); HEMOGLOBIN 10.9 g/dl (12.0-16.0); MEAN CELL VOLUME 89.1 fL CALC (80.0-100.0); MEAN CORPUSCULAR HGB CONC 30.4 g/dL CAL (32.0-36.0); RED BLOOD COUNT 4.03 mill/uL (4.20-5.60); RED CELL DISTRI WIDTH 16.9 % (11.5-15.5)
[2021-02-11 05:22] LABS: ANION GAP 9 (6-22 (CALC)); BUN 4 mg/dL (8-23); BUN/CREATININE RATIO 6 (12-20 (CALC)); CARBON DIOXIDE 27 mmol/l (22-30); CHLORIDE 106 mmol/l (95-108); CREATININE 0.7 mg/dL (0.5-1.0); GFR > 60 ML/MIN (>=60 (CALC)); GFR FOR AFR.AMER. > 60 ML/MIN (>=60 (CALC)); MAGNESIUM 2.2 mg/dL (1.6-2.3); POTASSIUM 4.6 mmol/l (3.5-5.1); SODIUM 138 mmol/l (137-146)
--- NOTE | 2021-02-11 07:00 | NUR ---
RECIEVED REPORT FROM IRENE GONZALEZ
--- NOTE | 2021-02-11 07:24 | NUR ---
PT RESTING IN SEMI FOWLERS POSITION. PT IS A/O X3. ASSESSMENT AND VITALS COMPLETED. BP 164/77, HR 86, O2 95% ON ROOM AIR. RESIRATIONS ARE EVEN AND UNLABORED WITH NO DISTRESS NOTED. LUNG SOUNDS ARE CLEAR. HEART RHYTHM NORMAL WITH TELE IN PLACE. BOWEL SOUNDS ARE ACTIVE. PT STATES SHE HAS HAD MUTIPLE BM THROUGHOUT THE NIGHT, NOW YELLOWISH. #20G RFA INFUSING WITH IVF PER ORDER, SITE REMAINS HEALTHY AND PATENT. SKIN INTACT. 2+ EDEMA NOTED TO BLE. SKIN TEAR TO LEFT ELBOW NOTED, NOW SCABBED OVER.PT REMAINS NPO FOR SCHEDULED COLONOSCOPY AT 1100. PT DENIES OF ANY PAINS OR DISCOMFORTS AT THIS TIME. ALL SAFETY PRECAUTIONS ARE IN PLACE WITH CALL LIGHT IN REACH. WILL CONTINUE TO MONITOR.
--- NOTE | 2021-02-11 08:25 | NUR ---
CONSENT OBTAINED AT THIS TIME. PT INFORMED OF OR STAFF ON THEIR WAY TO TRANSPORT TO OR. PT VERBLAIZED UNDERSTANDING.
--- NOTE | 2021-02-11 08:38 | NUR ---
PT TRANSPORTED TO OR VIA STRETCHER ACCOMPAINED BY OR STAFF IN STABLE CONDITION.
--- NOTE | 2021-02-11 08:38 | NUR ---
PT TAKEN VIA STRETCHER ACCOMPANIED BY Valerie ROGEL & Pascual GREENE RN IN STABLE CONDITION.
--- NOTE | 2021-02-11 11:19 | NUR ---
PT ARRIVED TO [facility] ROOM 271 VIA STRETCHER ACCOMPAINED BY OR STAFF. PT IS A/O X3. ASSESSMENT AND VITALS COMPLETED. BP 155/91, HR 90, O2 98% ON ROOM AIR. RESPIRATIONS ARE EVEN AND UNLABORED WITH NO DISTRESS NOTED. HEART RHYTHM NORMAL. TELE MONITORING OFF, SANDRA LACY STATES LEADS WERE LEFT DOWN STAIRS BUT WILL BE BROUGHT UP. #20G RFA INFUSING IWTH IVF PER ORDER, SITE REMAINS HEALTHY AND PATENT. PT REQUEST FOR FOOD. DIETARY CALLED. PT DENIES OF ANY PAINS OR DISCOMFORTS AT THIS TIME. ALL SAFETY PRECAUTIONS ARE IN PLACE WITH CALL LIGHT IN REACH. WILL CONTINUE TO MONITOR.
--- NOTE | 2021-02-11 11:25 | NUR ---
LEAD FOR TELE BROUGHT UP BY SANDRA ROJAS RN. TELE MONITORING PLACED BACK ON PT.
--- NOTE | 2021-02-11 11:55 | NUR ---
ROXANA,ANRP AT BEDSIDE
--- NOTE | 2021-02-11 13:28 | NUR ---
PT INFORMED OF STAYING ONE MORE NIGHT FOR THORACENTESIS. PT VERBALIZED UNDERSTANDING. PT REQUESTING JEWERLY FOR DAUGTER TO TAKE HOME. JEWELRY GIVE BACK TO PT FROM [facility] FOR WHEN DAUGHTER ARRIVES.
--- NOTE | 2021-02-11 16:14 | NUR ---
PT SLEEPING IN SEMI FOWLERS POSITION. RESIRATIONS ARE EVEN AND UNLABORED WITH NO DISTRESS NOTED. LUNG SOUNDS ARE CLEAR. HEART RHYTHM NORMAL WITH TELE IN PLACE. #20G RFA INFUSING WITH IVF PER ORDER, SITE REMAINS HEALTHY AND PATENT. NO SIGNS OF ANY PAINS OR DISCOMFORTS. ALL SAFTEY PRECAUTIONS ARE IN PLACE WITH CALL LIGHT IN REACH. WILL CONTINUE TO MONITOR
--- NOTE | 2021-02-11 18:56 | NUR ---
REPORT RECEIVED FROM Fransisca LESLIE LPN
--- NOTE | 2021-02-11 19:30 | NUR ---
ALERT AND ORIENTED X3. NORMAL HEART SOUNDS. CLEAR LUNG SOUNDS BILATERALLY AND THROUGHOUT LOBES. PT HAS A #20 G IN THE RFA WITH NS AT 20. ACTIVE BOWEL SOUNDS. LAST BOWEL MOVEMENT PER PATIENT WAS TODAY 02/11/21. PLAN OF CARE REVIEWED WITH PATIENT, CALL LIGHT AND BEDSIDE TABLE WITHIN REACH.
--- NOTE | 2021-02-11 23:50 | NUR ---
PATIENT UP TO THE RESTROOM AT THIS TIME, DENIES ANY CURRENT NEEDS. WRITTER ASSITED PT BACK TO BED. CALL LIGHT AND BEDSIDE TABLE WITHIN REACH.
[2021-02-12] VITALS: BP 155/63
--- NOTE | 2021-02-12 03:30 | NUR ---
PATIENT SLEEPING SOUNDLY, AWOKEN BY WRITTER, DENIES ANY CURRENT NEEDS. CALL LIGHT AND BEDSIDE TABLE WITHIN REACH.
[2021-02-12 04:00] VITALS: BP 167/78
[2021-02-12 07:49] VITALS: BP 124/76
--- NOTE | 2021-02-12 07:58 | NUR ---
REPORT RECEIVED FROM IRENE GONZALEZ. PT SITTING UP IN BED; ALERT AND ORIENTED X 3. DENIES PAIN; RESPIRATIONS EVEN AND UNLABORED ON ROOM AIR. IV FLUIDS INFUSING AT KVO; IV SITE APPEARS HEALTHY. MEDICAL MANAGEMENT SPECIALIST ON. POC REVIEWED; PT HAS QUESTIONS ABOUT HER SCHEDULED PARACENTESIS TODAY; QUESTIONS ANSWERED TO SATISFACTION; ENCOURAGED TO VERBALIZE ANY CONCERNS; STATES UNDERSTANDING. SAFETY MEASURES IN PLACE; CALL LIGHT WITHIN REACH.
[2021-02-12 08:51] LABS: HEMATOCRIT 36.5 % (37.0-47.0); HEMOGLOBIN 10.8 g/dl (12.0-16.0); MEAN CELL VOLUME 89.7 fL CALC (80.0-100.0); MEAN CORPUSCULAR HGB 26.5 pG CALC (26.0-32.0); MEAN CORPUSCULAR HGB CONC 29.6 g/dL CAL (32.0-36.0); RED BLOOD COUNT 4.07 mill/uL (4.20-5.60); RED CELL DISTRI WIDTH 16.3 % (11.5-15.5)
--- NOTE | 2021-02-12 09:14 | NUR ---
PT OFF UNIT VIA WHEELCHAIR WITH [employer] ENGINEER FOR THORACENTESIS.
--- NOTE | 2021-02-12 09:40 | NUR ---
RETURNED TO ROOM VIA WHEELCHAIR WITH RADIOLOGY STAFF. RESTING IN BED HIGH FOWLERS.
[2021-02-12 10:45] VITALS: BP 112/64
--- NOTE | 2021-02-12 10:45 | NUR ---
DR. YOUNG AND IVANNA SCHMIDT AT BEDSIDE.
[2021-02-12] MEDS ORDERED: XARELTO10 MG PO (10:51)
--- NOTE | 2021-02-12 11:36 | NUR ---
IV site discontinued, cath intact. No edema , no redness, voices no discomfort.
--- NOTE | 2021-02-12 12:44 | NUR ---
Discharge instructions given. Patient verbalizes understanding of same. Discharged in stable condition via Wheelchair to Home with family. All belongings sent with pt.
== END 2021-02-12 12:26 | disposition home or self-care (01) | DRG 811 ==
LOC: ED 14:32 → ED-I 16:50 → ED 17:15 → MS2 17:16
PROVIDERS: Family Medicine; Nurse Practitioner; Nurse Practitioner Family; ADMIT Internal Medicine; ATTEND Internal Medicine
PROC: 30233N1 Transfusion of Nonautologous Red Blood Cells into Peripheral Vein, Percutaneous Approach (ICD-10-PCS; principal; 2021-02-07)
PROC: 30233N1 Transfusion of Nonautologous Red Blood Cells into Peripheral Vein, Percutaneous Approach (ICD-10-PCS; 2021-02-07)
PROC: 30233N1 Transfusion of Nonautologous Red Blood Cells into Peripheral Vein, Percutaneous Approach (ICD-10-PCS; 2021-02-08)
PROC: 0DJ08ZZ Inspection of Upper Intestinal Tract, Via Natural or Artificial Opening Endoscopic (ICD-10-PCS; 2021-02-10)
PROC: 0DJDXZZ Inspection of Lower Intestinal Tract, External Approach (ICD-10-PCS; 2021-02-10)
PROC: 0DJD8ZZ Inspection of Lower Intestinal Tract, Via Natural or Artificial Opening Endoscopic (ICD-10-PCS; 2021-02-11)
DX: D64.9 Anemia, unspecified (principal); J18.9 Pneumonia, unspecified organism; Z68.1 Body mass index [BMI] 19.9 or less, adult; Q43.9 Congenital malformation of intestine, unspecified; J91.8 Pleural effusion in other conditions classified elsewhere; R19.5 Other fecal abnormalities; I10 Essential (primary) hypertension; E78.5 Hyperlipidemia, unspecified; I48.0 Paroxysmal atrial fibrillation; K64.8 Other hemorrhoids; I25.10 Atherosclerotic heart disease of native coronary artery without angina pectoris; D45 Polycythemia vera; R63.6 Underweight; Z86.73 Personal history of transient ischemic attack (TIA), and cerebral infarction without residual deficits; Z85.820 Personal history of malignant melanoma of skin; Z79.01 Long term (current) use of anticoagulants; Z79.02 Long term (current) use of antithrombotics/antiplatelets; Z20.822 Contact with and (suspected) exposure to COVID-19
CPT/HCPCS: P9016; Q9967; S0164